=== PATIENT | male | born 1945 | race Caucasian/White ===

== ENCOUNTER 2018-03-06 17:03 | Emergency (ER) | payer MEDICARE ==
[~2018-03-06] VITALS: Ht 172.7 cm; Wt 110.0 kg
[2018-03-06] MEDS ORDERED: SODIUM CHLORIDE FLUSH 10ML SYR IVF ONE (17:30)
[2018-03-06] MEDS ORDERED: ONDANSETRON ODT 4 MG PO ONE (17:30)
[2018-03-06 18:07] LABS: BASOPHILS # (AUTO) 0.02 x10^3/uL (0-0.1); BASOPHILS % (AUTO) 0 % (0-1); EOSINOPHILS # (AUTO) 0.05 x10^3/uL (0-0.4); EOSINOPHILS % (AUTO) 1 % (1-7); LYMPHOCYTES # (AUTO) 0.92 x10^3/uL (1-3.4); LYMPHOCYTES % (AUTO) 11 % (22-44); MD NO; MEAN CORPUSCULAR HGB CONC 32.8 g/dL (33.2-36.2); MEAN CORPUSCULAR VOLUME 85.4 fL (81-97); MEAN PLATELET VOLUME 9.8 fL (7.4-10.4); MONOCYTES # (AUTO) 0.72 x10^3/uL (0.2-0.8); MONOCYTES % (AUTO) 9 % (2-9); NEUTROPHILS # (AUTO) 6.65 x10^3/uL (1.8-6.8); NEUTROPHILS % (AUTO) 80 % (42-75); PLATELET COUNT 263 x10^3/uL (130-400); RED BLOOD COUNT 4.59 x10^6/uL (4.38-5.82); RED CELL DISTRIBUTION WIDTH 17.5 % (9.4-14.8)
[2018-03-06] MEDS ORDERED: ONDANSETRON ODT 4 MG ONE (18:08)
[2018-03-06 18:20] LABS: ALBUMIN 3.5 g/dL (3.4-5.0); ANION GAP 12 mmol/L (5-15); CALCIUM 8.4 mg/dL (8.5-10.1); CHLORIDE 103 mmol/L (98-107)
[2018-03-06] MEDS ORDERED: AMLO10TA6 PO (18:21)
[2018-03-06] MEDS ORDERED: ALLO300T PO (18:21)
[2018-03-06] MEDS ORDERED: NIAC750T4 PO (18:21)
[2018-03-06] MEDS ORDERED: HYDR12.517 PO (18:21)
[2018-03-06] MEDS ORDERED: OLME40TA12 PO (18:21)
[2018-03-06] MEDS ORDERED: PIOG30TA4 PO (18:21)
[2018-03-06] MEDS ORDERED: ROSU20TA PO (18:21)
[2018-03-06] MEDS ORDERED: ATEN25TA PO (18:21)
[2018-03-06] MEDS ORDERED: ASPI-496 PO (18:21)
[2018-03-06 18:22] LABS: ALANINE AMINOTRANSFERASE 36 U/L (12-78); ALKALINE PHOSPHATASE 102 U/L (45-117); BILIRUBIN,TOTAL 0.6 mg/dL (0.2-1.0); TOTAL PROTEIN 7.3 g/dL (6.4-8.2)
[2018-03-06 19:57] LABS: MICROSCOPIC AUTO
[2018-03-06 20:07] LABS: CULTURE INDICATED? NO
[2018-03-06 20:12] VITALS: BP 159/89
== END 2018-03-06 20:19 | disposition home or self-care (01) ==
LOC: ED 20:15
DX: B34.9 Viral infection, unspecified (principal); E11.22 Type 2 diabetes mellitus with diabetic chronic kidney disease; I12.9 Hypertensive chronic kidney disease with stage 1 through stage 4 chronic kidney disease, or unspecified chronic kidney disease; N18.9 Chronic kidney disease, unspecified; Z90.49 Acquired absence of other specified parts of digestive tract
CPT/HCPCS: 36415; 74022; 80053; 81001; 83690; 85025; 93005; 99284; Q0162